=== PATIENT | female | born 1990 | race Caucasian/White ===

== ENCOUNTER 2017-09-27 13:05 | Emergency (ER) | payer MEDICAID, OTHER ==
[~2017-09-27] VITALS: Ht 152.4 cm; Wt 90.0 kg
[2017-09-27] MEDS ORDERED: HYDROCODONE/APAP 7.5/325MG 1 TAB TABLET PO ONE (17:00)
[2017-09-27 17:32] VITALS: BP 142/69
== END 2017-09-27 18:45 | disposition home or self-care (01) ==
LOC: ER 15:49
DX: S20.211A Contusion of right front wall of thorax, initial encounter (principal); S16.1XXA Strain of muscle, fascia and tendon at neck level, initial encounter; V43.52XA Car driver injured in collision with other type car in traffic accident, initial encounter; Y93.89 Activity, other specified; Y92.488 Other paved roadways as the place of occurrence of the external cause
CPT/HCPCS: 71045; 81025; 99284; Z7610

== ENCOUNTER 2019-02-22 23:06 | Observation (INO) | payer OTHER | END 2019-02-23 00:55 | disposition home or self-care (01) | LOC: 8EST NSY 23:06 | PROVIDERS: ADMIT Specialist; ATTEND Specialist | DX: O26.893 Other specified pregnancy related conditions, third trimester (principal); R10.2 Pelvic and perineal pain; Z3A.39 39 weeks gestation of pregnancy | CPT/HCPCS: 99281; G0378 ==

== ENCOUNTER 2019-03-01 21:37 | Observation (INO) | payer MEDICAID, OTHER ==
[~2019-03-01] VITALS: Ht 152.4 cm; Wt 93.9 kg
[2019-03-01 23:11] LABS: CLARITY URINE CLOUDY (CLEAR); COLOR URINE YELLOW (YELLOW); KETONES URINE NEGATIVE (NEGATIVE); LEUKOCYTE ESTERASE URINE 2+ (NEGATIVE); NITRITE URINE NEGATIVE (NEGATIVE); OCCULT BLOOD URINE NEGATIVE (NEGATIVE); PROTEIN URINE NEGATIVE (NEGATIVE); SPECIFIC GRAVITY URINE 1.003 (1.005-1.030); UROBILINOGEN URINE 0.2 E.U./dL (0.2-1.0)
[2019-03-01] MEDS ORDERED: PRENATAL VITAMIN (23:43)
== END 2019-03-01 23:50 | disposition home or self-care (01) ==
LOC: 8 EST LDRP 21:37
PROVIDERS: ADMIT Specialist; ATTEND Specialist
DX: O62.9 Abnormality of forces of labor, unspecified (principal); Z3A.40 40 weeks gestation of pregnancy
CPT/HCPCS: 81003; 99281; G0378